=== PATIENT | female | born 1990 | race Caucasian/White ===

== ENCOUNTER 2017-08-11 17:40 | Emergency (ER) | payer OTHER, MEDICAID ==
[~2017-08-11] VITALS: Ht 165.1 cm; Wt 72.6 kg
[~2017-08-11 17:40] MED LIST: BACTRIM DS TAB1 EACH PO; CLEOCIN HCL300 MG PO; PRENATAL COMPL1 EACH PO; ULTRAM 50MG TAB50 MG PO
[2017-08-11] MEDS ORDERED: NOHOMEMEDICATIONS (18:00)
[2017-08-11] MEDS ORDERED: IBUPROFEN 800800 MG PO (18:22)
[2017-08-11] MEDS ORDERED: ACETAMINOPHEN-1 EAC1 PO (18:22)
[2017-08-11] MEDS ORDERED: PENICILLIN V P500 MG PO (18:43)
[2017-08-11 18:48] VITALS: BP 121/72
== END 2017-08-11 18:48 | disposition home or self-care (01) ==
LOC: M.ERS 17:40
DX: K08.89 Other specified disorders of teeth and supporting structures (principal); F17.210 Nicotine dependence, cigarettes, uncomplicated

== ENCOUNTER 2017-09-29 17:11 | Emergency (ER) | payer OTHER, MEDICAID ==
[~2017-09-29] VITALS: Ht 152.4 cm; Wt 73.5 kg
[~2017-09-29 17:11] MED LIST changes: +ACETAMINOPHEN-1 EAC1 PO; +IBUPROFEN 800800 MG PO; +NOHOMEMEDICATIONS; +PENICILLIN V P500 MG PO
[2017-09-29 17:59] LABS: URINE BILIRUBIN NEGATIVE (Negative); URINE BLOOD 3+ (Negative); URINE CLARITY SL CLOUDY; URINE COLOR YELLOW; URINE GLUCOSE-RANDOM NEGATIVE (Negative); URINE KETONES NEGATIVE (Negative); URINE LEUKOCYTES-REFLEX 1+ (Negative); URINE NITRITE-REFLEX NEGATIVE (Negative); URINE PROTEIN 1+ (Negative); URINE SPECIFIC GRAVITY >= 1.030 (1.005-1.030); URINE UROBILINOGEN 0.2 E.U./dl (0.2-1.0)
[2017-09-29 18:15] LABS: SQUAMOUS >10 Many /LPF (0-3)
[2017-09-29 18:16] LABS: MUCUS 4-6 Moderate strn/LPF (None Seen)
[2017-09-29 18:18] LABS: CASTS None Seen /LPF (None Seen); CRYSTALS None Seen /LPF (None Seen)
[2017-09-29 18:20] LABS: URINE RBC 3-10 Few /HPF (0-2)
[2017-09-29] MEDS ORDERED: MACROBID 100 M100 M2 PO (18:35)
[2017-09-29 18:43] VITALS: BP 109/73
== END 2017-09-29 18:45 | disposition home or self-care (01) ==
LOC: M.ERS 17:11
PROVIDERS: Nurse Practitioner Psychiatric/Mental Health
DX: N39.0 Urinary tract infection, site not specified (principal); F17.210 Nicotine dependence, cigarettes, uncomplicated; Z87.440 Personal history of urinary (tract) infections; Z85.43 Personal history of malignant neoplasm of ovary

== ENCOUNTER 2018-01-04 11:31 | Emergency (ER) | payer OTHER, MEDICAID ==
[~2018-01-04] VITALS: Ht 165.1 cm; Wt 72.6 kg
[~2018-01-04 11:31] MED LIST changes: +MACROBID 100 M100 M2 PO
[2018-01-04] MEDS ORDERED: AMOXICILLIN 50500 MG PO (11:56)
[2018-01-04] MEDS ORDERED: CIPRO HC OTIC S10 ML OTIC (11:56)
[2018-01-04 12:00] VITALS: BP 121/85
== END 2018-01-04 12:00 | disposition home or self-care (01) ==
LOC: M.ERS 11:31
DX: H60.92 Unspecified otitis externa, left ear (principal); H66.92 Otitis media, unspecified, left ear; F17.210 Nicotine dependence, cigarettes, uncomplicated; Z87.440 Personal history of urinary (tract) infections